=== PATIENT | female | born 1975 | race Caucasian/White ===

== ENCOUNTER 2021-04-07 20:23 | Emergency (ER) | payer BC, SELFPAY ==
[2021-04-07 20:43] VITALS: BP 147/76; PULSE 128; RESP 20; TEMP 37.2; O2SAT 93; BMI 44.4
--- NOTE | 2021-04-07 20:53 | XRR_ITS ---
PROCEDURE INFORMATION: Exam: XR Chest Exam date and time: 04/07/2021 8:53 PM Age: 45 years old Clinical indication: Cough and fever; Additional info: Cough, fever TECHNIQUE: Imaging protocol: XR of the chest. Views: 1 view. COMPARISON: CR Chest 1 [place] [id number] 10/19/2018 8:09 AM FINDINGS: Lungs: Unremarkable. No consolidation. Pleural spaces: Unremarkable. No pleural effusion. No pneumothorax. Heart/Mediastinum: Unremarkable. No cardiomegaly. Bones/joints: Unremarkable. XR/XR chest 1V portable [id number] IMPRESSION: No acute findings.
[2021-04-07] MEDS: sodium chloride 0.9% 1,000 ML 999 ML IV ×2 (21:48→22:28)
[2021-04-07] MEDS: acetaminophen 500 mg Tablet 1000 MG PO (21:48)
[2021-04-07] MEDS: lidocaine 2% viscous 15 ML, aluminum-mag hydrox-simethicon 30 ML, sucralfate oral liq 1 GM PO (21:48)
--- NOTE | 2021-04-07 21:51 | W.ED.GENADLT ---
HPI - General Adult General: Chief complaint: Fever Stated complaint: Cough/Fever Time Seen by Provider: 04/07/21 21:21 History of Present Illness: Patient is a 45-year-old female with history of recent COVID 02/2021, PE on xarelto presenting to the emergency room with 3-day onset of cough, generalized weakness, body ache, malaise, fever and chills. Patient tells me that her niece and nephews has had cough and she was exposed to them on Thursday and . Today her symptoms has progressively gotten worse and patient came to the emergency room for evaluation. In addition, patient has noted rash which began in her legs bilaterally and has spread to her trunk. The rash is blanching and not itchy. Patient denies any recent tick bite, being in the [place], or other family members with similar rashes. Onset: 3 days ago Duration:3 days Location:home Severity:moderate Associated symptoms: Reports dyspnea, malaise and rash; Deny chest pain, nausea, palpitations or vomiting Review of Systems Const: Reports: fever(s), body aches, malaise and other (+generalized weakness); Denies: chills Eyes: Denies: change in vision ENMT: Denies: mouth pain Card: Denies: chest pain or palpitations Resp: Reports: dyspnea and non-productive cough GI: Denies: abdominal pain, nausea, vomiting or diarrhea : Denies: dysuria Musc: Denies: extremity pain Skin/Breast: Reports: rash and new lesions (+rashes on the legs and lower abdomen) Neuro: Denies: weakness in extremities Psych: Reports: other (Normal mood) Luis/Lymph: Denies: easy bruising PFSH ED PFSH: Medical History (Updated 04/07/21 @ 22:00 by Rahul Tyler MD) COVID Pulmonary embolism Social History (Updated 04/07/21 @ 21:54 by Rahul Tyler MD) Smoking and tobacco status: never smoked Alcohol intake: never Substance/Drug Use: never Physical Exam Const: COMMON NORMALS: alert HENMT: COMMON NORMALS: atraumatic HEAD & SCALP: atraumatic MOUTH: moist mucous membranes abnormal Eye: COMMON NORMALS: EOMs intact bilaterally and conjunctivae normal CONJUNCTIVA: Yes conjunctivae normal Neck/C-Spine: COMMON NORMALS: full ROM and supple Resp: COMMON NORMALS: normal respiratory effort and clear to auscultation bilaterally AUSCULTATION: clear to auscultation bilaterally Cardio: RATE: tachycardic GI: COMMON NORMALS: Soft to palpation and non-tender PALPATION: Yes Soft to palpation Extremity: COMMON NORMALS: full ROM Neuro: SENSORIUM/ORIENTATION: Yes alert MOTOR EXAM: No Abnormal motor strength present and Other motor observations present (no focal motor deficits) Psych: COMMON NORMALS: speech normal SPEECH: Yes normal speech MOOD & AFFECT: Yes euthymic mood Skin: NARRATIVE SKIN EXAM: + Small nonconfluent/blanching maculopapular rash on the legs bilaterally and lower abdomen and lower back, no involvements of the rashes on the arms/faces/neck Course Vital Signs: Vital signs: Vital Signs Temperature 99.1 F 04/07/21 22:39 Pulse Rate 88 04/08/21 00:20 Respiratory Rate 19 H 04/07/21 22:39 Blood Pressure 131/85 04/07/21 22:39 Pulse Oximetry 98 04/08/21 00:20 MDM - General Adult Medical Decision Making 45-year-old female presenting to the emergency room with 1 day of progressive rash in the setting of generalized weakness, cough, body ache, malaise x3 days. On exam, patient is afebrile but noted to be tachycardic. Patient appears to be dry on exam. Patient received IVF Tylenol and GI cocktail with significant improvement in symptoms. Given new onset of rash with fever, decision was made to empirically start patient on doxycycline for concerns of Rickettsia and other tickborne illnesses. Symptoms are most consistent with viral infection. S/p 100mg of doxycycline in the ED. I have given patient follow up with our outpatient case manager to be seen by PCP for further revaluation of symptoms. Patient aware of a call from our outpatient case manager to schedule for appointment(s) and verbalizes understanding of the importance of following up. Rx doxycycline BID x 14 days, tylenol PRN fever, zofran PRN n/v, pepcid and maalox PRN dyspepsia Disposition: Discharge. Patient counseled regarding diagnostic impression, treatment plan. Patient given ED strict return precautions to return for continuation, worsening, or development of new symptoms. Instructed to f/u w/ PCP regarding symptoms today. Patient verbalized understanding. Lab Data : 04/07/21 21:49 04/07/21 21:49 Radiology Impressions Chest X-Ray 04/07/21 20:53 IMPRESSION: No acute findings. Laboratory Results WBC 6.4 10^3/uL (4.0-10.0) 04/07/21 21:49 RBC 4.13 10^6/uL (4.1-5.3) 04/07/21 21:49 Hgb 12.2 g/dL (11.5-15.3) 04/07/21 21:49 Hct 37.0 % (37.0-47.0) 04/07/21 21:49 MCV 89.6 fl (81-99) 04/07/21 21:49 MCH 29.5 pg (28.0-34.0) 04/07/21 21:49 MCHC 33.0 g/dL (30.0-36.0) 04/07/21 21:49 RDW 13.0 % (12.1-15.1) 04/07/21 21:49 Plt Count 261 10^3/cmm (130-400) 04/07/21 21:49 MPV 9.5 fL (7.4-10.4) 04/07/21 21:49 Neut % (Auto) 62.4 % 04/07/21 21:49 Lymph % (Auto) 24.8 % 04/07/21 21:49 Hubbard % (Auto) 11.0 % 04/07/21 21:49 Eos % (Auto) 1.3 % 04/07/21 21:49 Baso % (Auto) 0.2 % 04/07/21 21:49 Neut # (Auto) 3.99 10^3/uL (1.8-7.7) 04/07/21 21:49 Lymph # (Auto) 1.6 10^3/uL (0.8-4.8) 04/07/21 21:49 Hubbard # (Auto) 0.7 10^3/uL (0.2-0.9) 04/07/21 21:49 Eos # (Auto) 0.1 10^3/uL (0.0-0.8) 04/07/21 21:49 Baso # (Auto) 0.0 10^3/uL (0.0-0.1) 04/07/21 21:49 Nucleated RBC % (auto) 0 % 04/07/21 21:49 Nucleated RBCs # 0.0 /100WBC 04/07/21 21:49 Sodium 137 mmol/L (136-145) 04/07/21 21:49 Potassium 3.5 mmol/L (3.5-5.1) 04/07/21 21:49 Chloride 102 mmol/L (98-107) 04/07/21 21:49 Carbon Dioxide 24 mmol/L (22-29) 04/07/21 21:49 Anion Gap 14.5 (5-19) 04/07/21 21:49 BUN 13 mg/dL (6-20) 04/07/21 21:49 Creatinine 0.7 mg/dL (0.5-0.9) 04/07/21 21:49 GFR Calculation 90.5 mL/min (90-130) 04/07/21 21:49 Glucose 114 mg/dL (65-115) 04/07/21 21:49 Calculated Osmolality 285 mOsm/kg (285-295) 04/07/21 21:49 Calcium 9.2 mg/dL (8.5-10.5) 04/07/21 21:49 Nasal Influ A H1 2009 PCR Not detected (NOT DETECT) 04/08/21 04:57 Coronavirus 229E (PCR) Not detected (NOT DETECT) 04/07/21 21:20 Influenza A (H1) PCR Not detected (NOT DETECT) 04/08/21 04:57 Influenza A (H3) PCR Detected (NOT DETECT) A 04/08/21 04:57 Influenza Type A Ag Negative (Negative) 04/07/21 21:20 Influenza Type A (PCR) Detected (NOT DETECT) A 04/08/21 04:57 Influenza Type B Ag Negative (Negative) 04/07/21 21:20 Influenza Type B (PCR) Not detected (NOT DETECT) 04/08/21 04:57 SARS-CoV-2 (PCR) Not detected (NOT DETECT) 04/07/21 21:20 Imaging Data Other Imaging: Radiologist's impression: [address] [address] XRay Report Signed Patient: Kvng Redd Unit #: [id number] : 1975 Age/Sex: 45 / F ADM Date: 04/07/21 Loc: ER Room/Bed: Attending Dr: Ordering Provider/Ordering MD: Casper Alcaraz Sr, [facility] Date of Service: 04/07/21 Procedure(s): XR chest 1V portable [id number] Accession Number(s): [id number] Report Number: [id number] PROCEDURE INFORMATION: Exam: XR Chest Exam date and time: 04/07/2021 8:53 PM Age: 45 years old Clinical indication: Cough and fever; Additional info: Cough, fever TECHNIQUE: Imaging protocol: XR of the chest. Views: 1 view. COMPARISON: CR Chest 1 [place] [id number] 10/19/2018 8:09 AM FINDINGS: Lungs: Unremarkable. No consolidation. Pleural spaces: Unremarkable. No pleural effusion. No pneumothorax. Heart/Mediastinum: Unremarkable. No cardiomegaly. Bones/joints: Unremarkable. XR/XR chest 1V portable [id number] IMPRESSION: No acute findings. ? Dictated By: Vipin Mitchell MD Signed By: Vipin Mitchell MD Signed Date/Time: 04/07/212317 DD/ 52 Discharge Plan Discharge Patient Disposition: Home Clinical Impression: Cough, Generalized weakness, Body aches, Fever Condition: Stable Prescriptions: New doxycycline hyclate 100 mg capsule 100 mg PO BID 14 Days Qty: 28 0RF acetaminophen 500 mg tablet 500 mg PO Q6H PRN (Reason: pain and fever) 5 Days Qty: 20 0RF Zofran 4 mg tablet 4 mg PO TID PRN (Reason: nausea and vomiting) 4 Days Qty: 12 0RF Pepcid 20 mg tablet 20 mg PO BID PRN (Reason: abdominal pain) 10 Days Qty: 20 0RF Maalox Advanced 1,000-60 mg tablet,chewable 1 tab PO TID PRN (Reason: abdominal pain) 7 Days Qty: 21 0RF Discharge Orders: Discharge ED (Routine); Ordered 04/07/21 Ordered By: Rahul Tyler Referrals: Sinai Florez MD [Primary Care Provider] - Discharge Diet: Advance as tolerated Discharge Activity: Increase activity as tolerated Activity Restrictions/Additional Instructions: Come back to the emergency room if your symptoms worsen, have any shortness of breath, fever/chills, dehydration, inability tolerate food or drinks, any difficulty breathing, or any new or concerning complaints. Please take your antibiotics as instructed. Watch out for signs of skin changes/redness, mouth redeness or swelling, nausea/vomiting, diarrhea, blood in the urine or any new or concerning complaints. Teeth discoloration is expected with doxycycline use. Please refrain from going out into the sun while taking doxycycline as this effect can happen. Coding Level of Care Code ED Applications Developer for Flori Dent Exam Comprehensive
[2021-04-07 21:55] LABS: Basophils % 0.2 %; Eosinophils # 0.1 10^3/uL (0.0-0.8); Eosinophils % 1.3 %; Hemoglobin 12.2 g/dL (11.5-15.3); Lymphocytes # 1.6 10^3/uL (0.8-4.8); Lymphocytes % 24.8 %; Mean Corpuscular Hemoglobin 29.5 pg (28.0-34.0); Mean Corpuscular Volume 89.6 fl (81-99); Mean Platelet Volume 9.5 fL (7.4-10.4); Monocytes # 0.7 10^3/uL (0.2-0.9); Neutrophils # 3.99 10^3/uL (1.8-7.7); Neutrophils % 62.4 %; Nucleated Red Blood Cells % 0 %; Platelet Count 261 10^3/cmm (130-400); Red Blood Count 4.13 10^6/uL (4.1-5.3); White Blood Count 6.4 10^3/uL (4.0-10.0)
[2021-04-07 21:59] VITALS: TEMP 38.4
[2021-04-07] MEDS: ketorolac 30 mg/mL INJ IVP (22:11)
[2021-04-07 22:12] LABS: Anion Gap 14.5 (5-19); Blood Urea Nitrogen 13 mg/dL (6-20); Calcium 9.2 mg/dL (8.5-10.5); Carbon Dioxide 24 mmol/L (22-29); Chloride 102 mmol/L (98-107); Glomerular Filtration Rate 90.5 mL/min (90-130); Glucose 114 mg/dL (65-115); Osmolality Calculated 285 mOsm/kg (285-295); Potassium 3.5 mmol/L (3.5-5.1); Sodium 137 mmol/L (136-145)
[2021-04-07 22:25] LABS: Influenza A by IFA Negative (Negative); Influenza B by IFA Negative (Negative)
[2021-04-07 22:39] VITALS: BP 131/85; PULSE 108; RESP 19; TEMP 37.3; O2SAT 96
[2021-04-07 23:10] VITALS: PULSE 98; O2SAT 97
[2021-04-07] MEDS: doxycycline 100 MG in sodium chloride 0.9% (plus) 100 ML IV (23:29)
[2021-04-07] MEDS: ondansetron 2 mg/ML SDV 2 mL 4 MG IVP (23:30)
[2021-04-08 00:20] VITALS: PULSE 88; O2SAT 98
[2021-04-08 04:55] LABS: Adenovirus Not Detected (NOT DETECT); Chlamydia Pneumoniae Not Detected (NOT DETECT); Coronavirus 229E,HKU1,NL63,OC4 Not Detected (NOT DETECT); Human Metapneumovirus Not Detected (NOT DETECT); Human Rhinovirus/Enterovirus Not Detected (NOT DETECT); Influenza A Detected (NOT DETECT); Influenza A H1 Not Detected (NOT DETECT); Influenza A H1-2009 Not Detected (NOT DETECT); Influenza A H3 Detected (NOT DETECT); Influenza B Not Detected (NOT DETECT); Mycoplasma Pneumoniae Not Detected (NOT DETECT); Parainfluenza Virus Type 1 Not Detected (NOT DETECT); Parainfluenza Virus Type 2 Not Detected (NOT DETECT); Parainfluenza Virus Type 3 Not Detected (NOT DETECT); Parainfluenza Virus Type 4 Not Detected (NOT DETECT); Respiratory Syncytial Virus A Not Detected (NOT DETECT); Respiratory Syncytial Virus B Not Detected (NOT DETECT); SARS-COV-2 Not Detected (NOT DETECT)
[2021-04-08 04:57] LABS: Influenza A Detected (NOT DETECT); Influenza A H1 Not Detected (NOT DETECT); Influenza A H1-2009 Not Detected (NOT DETECT); Influenza A H3 Detected (NOT DETECT); Influenza B Not Detected (NOT DETECT); Results from Genmark
== END 2021-04-08 00:21 | disposition home or self-care (01) ==
PROVIDERS: Nurse Practitioner Family; Emergency Provider Emergency Medicine; PCP Family Medicine
DX: R50.9 Fever, unspecified (principal); R53.1 Weakness; R52 Pain, unspecified; Z20.822 Contact with and (suspected) exposure to COVID-19
CPT/HCPCS: 71045; 80048; 85025; 87631; 87635; 87804; 96365; 96375; 99284; J1885; J2405; J3490; J7030

== ENCOUNTER → 2022-12-31 10:16 | Outpatient (BNVA) | payer BC, SELFPAY | PROVIDERS: PCP Family Medicine; Visit Provider Emergency Medicine | DX: N39.0 Urinary tract infection, site not specified (principal); B34.9 Viral infection, unspecified; H61.23 Impacted cerumen, bilateral | CPT/HCPCS: 81000; 87086; 87400; 87426 ==

== ENCOUNTER 2023-04-13 06:00 | Outpatient (RCR) | payer BC, SELFPAY | END 2023-05-10 23:59 | disposition home or self-care (01) | LOC: MPT 06:00 | PROVIDERS: Visit Provider Orthopaedic Surgery | DX: Z47.1 Aftercare following joint replacement surgery (principal); Z96.652 Presence of left artificial knee joint | CPT/HCPCS: 97110; 97162; G0283 ==

== ENCOUNTER 2023-05-11 06:00 | Outpatient (RCR) | payer BC, SELFPAY | END 2023-06-09 23:59 | disposition home or self-care (01) | LOC: MPT 06:00 | PROVIDERS: Visit Provider Orthopaedic Surgery | DX: Z47.1 Aftercare following joint replacement surgery (principal); Z96.652 Presence of left artificial knee joint | CPT/HCPCS: 97110; G0283 ==

== ENCOUNTER 2023-06-10 06:00 | Outpatient (RCR) | payer BC, SELFPAY | END 2023-07-10 23:59 | disposition home or self-care (01) | LOC: MPT 06:00 | PROVIDERS: Visit Provider Orthopaedic Surgery | DX: Z47.1 Aftercare following joint replacement surgery (principal); Z96.652 Presence of left artificial knee joint | CPT/HCPCS: 97110; G0283 ==

== ENCOUNTER 2023-07-11 06:00 | Outpatient (RCR) | payer BC, SELFPAY | END 2023-07-22 23:59 | disposition home or self-care (01) | LOC: MPT 06:00 | PROVIDERS: Visit Provider Orthopaedic Surgery | DX: Z47.89 Encounter for other orthopedic aftercare (principal); Z96.652 Presence of left artificial knee joint | CPT/HCPCS: 97110; 97112; G0283 ==

== ENCOUNTER → 2023-10-15 10:20 | Outpatient (BNVA) | payer BC, SELFPAY | PROVIDERS: Visit Provider Nurse Practitioner | DX: J02.9 Acute pharyngitis, unspecified (principal); R52 Pain, unspecified | CPT/HCPCS: 87426 ==

== ENCOUNTER → 2025-01-08 17:14 | Outpatient (BNVA) | payer BC, SELFPAY | PROVIDERS: Visit Provider Nurse Practitioner | DX: J02.9 Acute pharyngitis, unspecified (principal) | CPT/HCPCS: 87880 ==